=== PATIENT | female | born 1930 | race Caucasian/White ===

== ENCOUNTER 2017-03-14 12:34 | Inpatient (IN) ==
--- NOTE | 2017-03-14 14:05 | XRay Report ---
HISTORY: Reason for Exam:fall FINDINGS: There is an acute intertrochanteric fracture of the left hip. The shaft is displaced laterally and retracted proximally. The joint space in the hip is normal in width and alignment. The bones are osteopenic. There is arthritis and joint space narrowing at the symphysis pubis. A moderate scoliotic curvature is seen in the lumbar spine. IMPRESSION: Intertrochanteric fracture of the proximal left femur Interpreted and Authenticated by: Reese Lara 03/14/17
--- NOTE | 2017-03-14 14:10 | XRay Report ---
HISTORY: Reason for Exam:Hip Fracture FINDINGS: The left hemithorax is nearly completely opacified consistent with prior pneumonectomy and thoracoplasty. There is deformity of the ribs. The right lung is well expanded and clear. The heart cannot be visualized since it is in the left thorax. There is also a moderately severe dextroscoliotic curvature in the lower thoracic spine and compensatory levoscoliosis at the cervical thoracic junction. There has been no significant change since 02/18/14. IMPRESSION: Chronic stable surgical changes in left thorax and no acute abnormality. Interpreted and Authenticated by: Reese Lara 03/14/17
--- NOTE | 2017-03-14 14:13 | XRay Report ---
HISTORY: Reason for Exam:Knee Pain FINDINGS: There is a well-positioned hemiarthroplasty in the medial side of the knee. The alignment is unchanged since 08/23/06. Dystrophic calcifications have formed along the outer margin of the medial prosthetic tibial plateau. Patient is also developing chondrocalcinosis in the lateral meniscus. The lateral joint space is somewhat narrowed compared with the prior exam. There is soft tissue swelling around the joint anteriorly and medially. No acute fracture is present. The bones are osteopenic. IMPRESSION: No acute fracture Interpreted and Authenticated by: Reese Lara 03/14/17
--- NOTE | 2017-03-14 14:29 | Emergency Department Note ---
Lower Extremity Injury HPI - General Chief Complaint: Extremity Injury, Lower Stated Complaint: L posterior hip pain, back pain Time Seen by Provider: 03/14/17 12:40 Source: patient, EMS Mode of arrival: EMS - History of Present Illness HPI Narrative: 78-year-old female presents with left hip pain. States she fell at home when the wheel on her walker got stuck. States yesterday at religious she excellently backed into her walker and bent the frame of the walker and broke the wheel. Today she was trying to use her walker and the wheel stuck and she fell over the walker. Landed on the left hip and leg periods had left hip pain since. States she has chronic left knee pain so she tries to baby that leg and that is why she uses a walker. Her left knee is sore as well but the left hip is where most of her pain is. States no pain unless she ambulates. It is severe if she ambulates or bears weight. No dysuria or frequency. No difficulty urinating. Denies hitting her head. No head, neck or back pain. No loss of consciousness. Is not on any blood thinners. - Related Data Home Medications Medication Instructions Recorded Confirmed Levothyroxine [Synthroid] 50 mcg PO DAILY 03/14/17 03/14/17 Losartan/Hctz 50/12.5 [Hyzaar 1 tab PO DAILY 03/14/17 03/14/17 50/12.5] Allergies Allergy/AdvReac Type Severity Reaction Status Date / Time No Known Drug Allergies Allergy Unverified 03/14/17 12:38 Review of Systems All systems ED: reviewed and negative except as stated. Past Medical History - Past Medical History Medical history: Reports: hypertension, thyroid disease Surgical history ED: Reports: appendectomy, , other (Left knee surgery , states prior pneumothorax related to tuberculosis when she was young) - Social History smoking status: Never smoker Alcohol use: Reports: None Drug use: Reports: none Physical Exam - General Limitations: no limitations General appearance: alert, in no apparent distress - Head Head exam: atraumatic, normocephalic - Eye Eye exam: Present: normal appearance. Absent: conjunctival injection - ENT ENT exam: normal exam, normal oropharynx, mucous membranes moist, TM's normal bilaterally, normal external ear exam - Neck Neck exam: Present: normal inspection, full ROM, trachea midline. Absent: tenderness, lymphadenopathy - Chest Chest inspection: Present: normal inspection, symmetric chest wall rise - Respiratory Respiratory exam: Present: normal lung sounds bilaterally. Absent: respiratory distress, accessory muscle use - Cardiovascular Cardiovascular exam: Present: regular rate, normal heart sounds - Abdominal Exam Abdominal exam: Present: soft, normal bowel sounds. Absent: distention, tenderness, guarding - Extremities Exam Extremities exam: Absent: normal inspection (Left leg is slightly shortened, rotated. Diffuse tenderness to palpation of the left hip. No tenderness to the left knee but does have tenderness in the left knee if extension or flexion. No laxity.), full ROM (Really limited active range of motion the left hip related pain) - Neurological Exam Neurological exam: Present: alert, oriented X3. Absent: motor sensory deficit - Psychiatric Psychiatric exam: Present: normal affect, normal mood - Skin Skin exam: Present: warm, dry, intact, normal color. Absent: rash, cyanosis, diaphoresis, erythema Course Course Narrative: Dr. Noel contacted, who is on-call for orthopedics. He agrees to admit the patient and keep her n.p.o. and try to take her surgery today if possible. The patient last ate and drank at 7:00 this morning. Nothing to eat or drink since. The patient was notified and is agreeable. We will talk to the hospitalist for admit as Dr. Noel has requested hospitalist to admit and Dr. Noel to consult. At 15[address] Dr[address] Samuels who agrees to except and care for patient. Vital Signs Temperature 97.1 F 03/14/17 12:34 Pulse Rate 105 H 03/14/17 12:34 Respiratory Rate 16 03/14/17 12:34 Blood Pressure 158/81 03/14/17 12:34 Pulse Oximetry (%) 96 03/14/17 12:34 Temperature 97.1 F 03/14/17 12:34 Pulse Rate 103 H 03/14/17 14:31 Respiratory Rate 16 03/14/17 12:34 Blood Pressure 171/127 03/14/17 14:31 Pulse Oximetry (%) 95 03/14/17 14:31 Extremity Injury, Lower - Lab Data Result diagrams: 03/14/17 14:04 03/14/17 14:04 Lab Results 10/02/17 10/02/17 Range/Units 14:04 14:04 WBC 17.3 H (4.5-11.0) K/mcL RBC 4.91 (4.00-5.20) M/mcL Hgb 14.7 (12.0-15.0) g/dL Hct 44.1 (36.0-48.0) % MCV 89.9 (80.0-100.0) fL MCH 29.9 (26.0-34.0) pg MCHC 33.3 (31.0-36.0) g/dL RDW 14.7 H (11.5-14.5) % Plt Count 269 (140-440) K/mcL MPV 8.3 (7.4-10.4) fL Gran % 88.9 H (38.0-78.0) % Lymph % (Auto) 6.4 L (15.5-49.0) % [place] % (Auto) 4.0 (1.0-12.0) % Eos % (Auto) 0.3 (0.0-7.0) % Baso % (Auto) 0.4 (0.0-2.0) % Gran # 15.4 H (1.8-8.0) K/mcL Lymph # (Auto) 1.1 L (1.5-4.8) K/mcL [place] # (Auto) 0.7 (0.1-0.9) K/mcL Eos # (Auto) 0.1 (0.0-0.7) K/mcL Baso # (Auto) 0.1 (0.0-0.3) K/mcL Sodium 137 (133-145) mmol/L Potassium 3.8 (3.3-5.1) mmol/L Chloride 95 L (96-108) mmol/L Carbon Dioxide 30 (22-30) mmol/L Anion Gap 12.0 (8-16) BUN 18 (8-23) mg/dl Creatinine 0.7 (0.6-1.1) mg/dl GFR Calculation 77 Glucose 100 (70-105) mg/dL Calcium 9.2 (8.6-10.4) mg/dl Total Bilirubin 0.5 (0.0-1.0) mg/dL AST 15 (0-37) U/l ALT 8 (0-40) U/l Alkaline Phosphatase 71 (39-117) U/L Total Protein 7.5 (5.9-8.4) gm/dL Albumin 3.9 (3.2-5.2) gm/dL Globulin 3.6 (2.2-3.7) gm/dL Albumin/Globulin Ratio 1.1 (1.0-2.3) Disposition Pt seen by SCALE AND SKIP CAR OPERATOR/PA only: Yes Clinical Impression: Fall, Hip fracture, left, Hip pain, left Disposition: Xfer As Inpt ([facility]) Condition: Fair Referrals: Serjio Taveras MD [Primary Care Provider] -
[2017-03-14 14:32] LABS: Basophils # (Auto) 0.1 K/mcL (0.0-0.3); Basophils % (Auto) 0.4 % (0.0-2.0); Eosinophils # (Auto) 0.1 K/mcL (0.0-0.7); Eosinophils % (Auto) 0.3 % (0.0-7.0); Granulocytes % (Auto) 88.9 % (38.0-78.0); Lymphocytes # (Auto) 1.1 K/mcL (1.5-4.8); Lymphocytes % (Auto) 6.4 % (15.5-49.0); Mean Cell Volume 89.9 fL (80.0-100.0); Mean Corpuscular HGB Conc 33.3 g/dL (31.0-36.0); Mean Corpuscular Hemoglobin 29.9 pg (26.0-34.0); Monocytes # (Auto) 0.7 K/mcL (0.1-0.9); Platelet Count 269 K/mcL (140-440); RBC 4.91 M/mcL (4.00-5.20); Red Cell Distribution Width 14.7 % (11.5-14.5)
[2017-03-14 14:50] LABS: ALT/SGPT 8 U/l (0-40); Albumin 3.9 gm/dL (3.2-5.2); Albumin/Globulin Ratio 1.1 (1.0-2.3); Alkaline Phosphatase 71 U/L (39-117); Blood Urea Nitrogen 18 mg/dl (8-23)
[2017-03-14] MEDS ORDERED: ONDANSETRON 4 MG/2 ML VIAL IV ONE (15:08)
[2017-03-14] MEDS ORDERED: HYDROmorphone 2 MG/ML SYRINGE IV PRN (15:08)
[2017-03-14 15:48] LABS: Appearance,Urine CLEAR; Bacteria,Urine 0 /hpf (0); Bilirubin,Urine NEG (NEG); Color,Urine STRAW; Glucose,Urine (UA) NEGATIVE (NEG); Leukocyte Esterase,Urine NEG /uL (NEG); Nitrate,Urine NEG (NEG); Protein,Urine NEG (NEG); Urine Blood 0.03 mg/dL (<0.03); Urine RBC 2 /hpf (0-1); Urine Squamous Epithelial Cell 0 /hpf (0-4); Urine WBC < 1 /hpf (0-4); Urobilinogen,Urine NEG (NEG)
--- NOTE | 2017-03-14 16:15 | Internal Med History&Physical ---
Medical - H&P: HPI Patient information: Note initiated : 03/14/17 at 4:13 pm Service Date, if different from initiated Date: [] Patient: Jaclyn Day 86 y/o F admitted on for Lt Posterior Hip Pain, Back Pain. Chief Complaint: [] History of present illness: Ms. Day is a 86 year old Female with h/o htn, hypothyroidism, presents to the ER after a [facility] fall, she fell after the walker got stuck, pain in the right hip since then. The patient otherwise has no other complaints. pain sharp, worse with movement, non radiating, better with rest and pain meds. The patient denies any prodromal symptoms, no cp, sob, palpitations, dizziness, any bowel or bladder issues before fall, denies any head trauma. She was brought to the ER for further eval In the ER labs show elevated wbc, ua neg, cxr shows collapsed left lung, right lung clear, (h/o tb and pneumectomy when she was 11 yrs old) X ray hip shows IT fracture of the left femur. Admitted to hospital for further management. she denies any bleeding issues, no chest pain, no h/o cad, chf, tia or cva, no h /o renal failure, no h/o dm. All systems: reviewed and no additional remarkable complaints except as stated ( as per hpi) Medical - H&P: PMH Medical history: Medical History Fall (Acute) Hip fracture, left (Acute) Hip pain, left (Acute) htn hypothyroidism Surgical history: appendectomy Family history: reviewed and not pertinent Social history: non smoker no etoh no recreational drugs. Medical - H&P: Meds Home Medications Medication Instructions Recorded Confirmed Type Levothyroxine [Synthroid] 50 mcg PO DAILY 03/14/17 03/14/17 History Losartan/Hctz 50/12.5 [Hyzaar 1 tab PO DAILY 03/14/17 03/14/17 History 50/12.5] Allergies Allergy/AdvReac Type Severity Reaction Status Date / Time No Known Drug Allergies Allergy Unverified 03/14/17 12:38 Medical - H&P: Exam - Constitutional Vitals: Temp Pulse Resp BP Pulse Ox 97.1 F 98 H 16 156/73 98 03/14/17 12:34 03/14/17 16:01 03/14/17 12:34 03/14/17 16:01 03/14/17 16:01 Exam: GENERAL: The patient is a well-developed, well-nourished in no apparent distress. Is alert and oriented x3. VITAL SIGNS: Reviewed and as noted elsewhere. HEENT: Head is normocephalic and atraumatic. Extraocular muscles are intact. Pupils are equal, round, and reactive to light. Nares appeared normal. Mouth appears any without lesions. Mucous membranes are moist. NECK: Normal to inspection, Supple, No lymphadenopathy or thyromegaly. LUNGS: Air entry absent on left side, no wheezing, crackles or rhonchi noted on the right side. No accessory muscles of respiration HEART: Regular rate and rhythm normal, S1 and S2 heard, no Gallop, S3 or Rub Noted, No Gross murmur heard. ABDOMEN: Soft, nontender, and nondistended. Positive bowel sounds. No hepatosplenomegaly was noted. EXTREMITIES: No cyanosis, clubbing, rash, lesions or edema. NEUROLOGIC: Cranial nerves II through XII are grossly intact. Motor and Sensory System Grossly Intact PSYCHIATRIC: Normal affect, Normal Mood. Appropriate Behavior. SKIN: No ulceration or wounds noted, No jaundice, No rash noted. Medical - H&P: Reslt - Labs CBC & Chem 7: 03/14/17 14:04 03/14/17 14:04 Labs: Short CBC 03/14/17 Range/Units 14:04 WBC 17.3 H (4.5-11.0) K/mcL Hgb 14.7 (12.0-15.0) g/dL Hct 44.1 (36.0-48.0) % Plt Count 269 (140-440) K/mcL BMP 03/14/17 14:04 Sodium 137 Potassium 3.8 Chloride 95 L Carbon Dioxide 30 BUN 18 Creatinine 0.7 Glucose 100 Calcium 9.2 Liver Function 03/14/17 Range/Units 14:04 Total Bilirubin 0.5 (0.0-1.0) mg/dL AST 15 (0-37) U/l ALT 8 (0-40) U/l Alkaline Phosphatase 71 (39-117) U/L Albumin 3.9 (3.2-5.2) gm/dL Urine 03/14/17 Range/Units 15:33 Urine Color Straw Urine Appearance Clear Urine pH 5.0 (5.0-9.0) Ur Specific [place] 1.010 (1.000-1.035) Urine Protein Neg (NEG) mg/dL Urine Glucose (UA) Negative (NEG) mg/dL Medical - H&P: A/P (1) Hypertension Current visit: Yes Status: Acute (2) Hypothyroidism (acquired) Current visit: Yes Status: Acute (3) Fall Current visit: Yes Status: Acute (4) Hip fracture, left Current visit: Yes Status: Acute (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 Management as per ortho, pain management, dvt as per ortho HTN: BP ok, resume home meds after surgery HYpothyroidism: Resume synthroid after surgery Leucocytosis: CXR neg, UA neg, check proclacitionin, clinically pt does not seem to have infection, likely secondary to stress/ trauma, monitor DVT lovenox in AM Full code Regular diet after surgery, NPO for now.
[2017-03-14] MEDS ORDERED: ceFAZolin 1 GM VIAL IM ONE (16:22)
[2017-03-14] MEDS ORDERED: ceFAZolin 1 GM VIAL ONE (16:29)
[2017-03-14] MEDS ORDERED: ceFAZolin 1 GM VIAL IV SCH (16:30)
[2017-03-14] MEDS ORDERED: fentaNYL 100 MCG/2 ML VIAL IV ONE (16:55)
[2017-03-14] MEDS ORDERED: METOPROLOL TARTRATE 5 MG/5 ML VIAL IV ONE (16:55)
[2017-03-14] MEDS ORDERED: MIDAZOLAM 2 MG/2 ML VIAL ONE (16:55)
[2017-03-14] MEDS ORDERED: 0.9 % SODIUM CHLORIDE 1,000 ML IV ONE (17:33)
[2017-03-14] MEDS ORDERED: HYDROCODONE/APAP 7.5/325MG TABLET PO PRN (17:51)
[2017-03-14] MEDS ORDERED: ONDANSETRON 4 MG/2 ML VIAL IV PRN ×3 (17:51→19:07)
--- NOTE | 2017-03-14 17:51 | Brief Operative Note ---
Date of procedure: 03/14/17 Pre-op diagnosis: IT l hip fx Post-op diagnosis: same Procedure: Gamma nail Grafts/Implants: Yes (Gamma nail silvia) Anesthesia: spinal Complications: none Surgeon: Juan Antonio Noel Well Driller: Darius Milton Estimated blood loss (cc): 250 Tourniquet Time (Minutes): 0 Specimens Removed/Pathology: none sent Condition: stable Disposition: PACU
--- NOTE | 2017-03-14 18:11 | History and Physical Report ---
DATE OF ADMISSION: 03/14/2017 HISTORY OF PRESENT ILLNESS: Jaclyn is 86 years old. She tripped on her walker today. She was noted to have an intertrochanteric left hip fracture in the [facility] Emergency Room. History was taken from the patient. PAST MEDICAL HISTORY: Tuberculosis at the age of 11 with a collapsed lung. She has had no chronic tuberculosis. She was unclear if she took antibiotics when she had tuberculosis. SURGICAL HISTORY: Appendectomy, and a knee scope. HABITS: Smoking: No. Alcohol: No. SOCIAL HISTORY: She is a community ambulator. Her baseline activity is walking with a walker. MEDICATIONS: She could not remember the name, but there was one antihypertensive and one thyroid supplement. PHYSICAL EXAMINATION: GENERAL: She is awake, alert, oriented. She speaks well and seems to hear well. Mood and affect are normal. HEAD: Shows no signs of trauma. SKIN: Looks moist. LUNGS: Sound clear. CORONARY: Regular rate and rhythm. No murmurs, rubs, or gallops. MUSCULOSKELETAL: Pelvic shows pain with the left hip with rotation. Distally her leg looks a little shortened. She can dorsiflex both ankles actively. X-rays show an intertrochanteric left hip fracture with mild displacement. DIAGNOSIS: Left intertrochanteric hip fracture. I have recommended fixation with a gamma nail. The risks and benefits of surgery were discussed with the patient including the benefit of getting up early, the risk of infection, , medical complications, needing more surgery, etc. The postoperative course was reviewed and no guarantees were given. [email or web address] Job ID: [id number] Doc ID: [id number] Juan Antonio Noel MD
--- NOTE | 2017-03-14 18:35 | XRay Report ---
HISTORY: Reason for Exam:s/p gamma nail for left hip fracture FINDINGS: There is good alignment following open reduction internal fixation of the intertrochanteric fracture in the proximal left femur. A scooter has been inserted through the greater trochanter into the shaft of the femur. There is a crossing scooter which extends through the femoral neck into the head. No other fracture is present. IMPRESSION: Good alignment following internal fixation of the intertrochanteric fracture Interpreted and Authenticated by: Reese Lara 03/14/17
[2017-03-14] MEDS ORDERED: NALOXONE HCL 0.4 MG/ML VIAL IV PRN (19:07)
[2017-03-14] MEDS ORDERED: MAGNESIUM HYDROXIDE 30 ML ORAL.SUSP PO PRN (19:07)
[2017-03-14] MEDS ORDERED: oxyCODONE HCL 5 MG TABLET PO PRN (19:07)
[2017-03-14] MEDS ORDERED: IPRATROPIUM/ALBUTEROL 3 ML AMPUL.NEB NEB PRN (19:07)
[2017-03-14] MEDS ORDERED: 0.9 % SODIUM CHLORIDE 10 ML SYRINGE IV SCH (22:00)
[2017-03-14] MEDS: 0.9 % SODIUM CHLORIDE 10 ML SYRINGE IV SCH ×2 (22:02→22:34)
[2017-03-14] MEDS: SENNOSIDES 1 TABLET PO SCH (22:02)
[2017-03-14] MEDS: HYDROCODONE/APAP 7.5/325MG TABLET PO PRN (22:30)
[2017-03-14] MEDS: HYDROmorphone 2 MG/ML SYRINGE IV PRN (22:31)
[2017-03-15] MEDS ORDERED: ceFAZolin 1 GM VIAL IV SCH ×2 (00:30→22:00)
[2017-03-15] MEDS: 0.9 % SODIUM CHLORIDE 10 ML SYRINGE IV SCH ×6 (05:13→23:26)
[2017-03-15] MEDS ORDERED: ceFAZolin 1 GM VIAL ONE (05:15)
--- NOTE | 2017-03-15 06:35 | Orthopedic Progress Note ---
Orthopedics - Auxillary Note - Subjective Patient Information: Note initiated : 03/15/17 at 6:31 am Service Date, if different from initiated Date: [] Patient: Jaclyn Day 86 y/o F admitted on 03/14/17 for Lt Posterior Hip Pain, Back Pain. Chief Complaint: Mild pain. bandages c/d/i nvi-distal Vital Signs Temp Pulse Pulse Resp BP BP Pulse Ox 03/15/17 03:07 98.1 F 85 14 104/61 97 03/14/17 23:55 97.9 F 81 14 96/56 95 03/14/17 21:22 84 106/61 96 03/14/17 20:25 94 03/14/17 20:22 87 110/66 96 03/14/17 19:52 86 120/72 98 03/14/17 19:22 91 H 130/63 94 03/14/17 19:07 100 H 89 L 03/14/17 19:00 94 03/14/17 18:52 90 118/74 96 03/14/17 18:37 98.6 F 88 16 138/67 90 03/14/17 18:29 98.3 F 87 20 124/90 93 03/14/17 18:25 98.3 F 87 20 124/90 93 03/14/17 18:20 98.3 F 87 20 122/54 93 03/14/17 18:15 98.9 F 87 20 131/71 93 03/14/17 18:10 98.9 F 87 20 122/54 93 03/14/17 18:05 98.9 F 87 20 104/61 93 03/14/17 18:00 99.8 F H 84 20 109/61 93 03/14/17 16:12 98 H 16 156/73 98 03/14/17 16:01 98 H 156/73 98 03/14/17 15:30 102 H 146/74 92 03/14/17 15:08 99 H 138/75 93 03/14/17 14:31 103 H 171/127 95 03/14/17 14:01 100 H 155/75 94 03/14/17 13:40 91 H 134/71 92 03/14/17 12:46 95 H 145/68 94 03/14/17 12:38 94 H 158/81 91 03/14/17 12:34 97.1 F 105 H 16 158/81 96 Intake and Output 03/14/17 03/15/17 03/15/17 21:59 05:59 13:59 Intake Total 2100 / 2100 100 / 100 Output Total 750 / 750 100 / 100 Balance 1350 / 1350 0 / 0 Intake: IV 1000 / 1000 Sodium Chloride 0.9% 1,000 ml @ 1000 / 1000 Wide Open IV BOLUS ONE Rx#: [id number] Oral 100 / 100 Other 1100 / 1100 Output: Urine Catheter Amount 750 / 750 100 / 100 Other: Weight 120 lb Laboratory Results - last 24 hr 03/14/17 03/14/17 03/14/17 14:04 14:04 14:04 WBC 17.3 H RBC 4.91 Hgb 14.7 Hct 44.1 MCV 89.9 MCH 29.9 MCHC 33.3 RDW 14.7 H Plt Count 269 MPV 8.3 Gran % 88.9 H Lymph % (Auto) 6.4 L [place] % (Auto) 4.0 Eos % (Auto) 0.3 Baso % (Auto) 0.4 Gran # 15.4 H Lymph # (Auto) 1.1 L [place] # (Auto) 0.7 Eos # (Auto) 0.1 Baso # (Auto) 0.1 Sodium 137 Potassium 3.8 Chloride 95 L Carbon Dioxide 30 Anion Gap 12.0 BUN 18 Creatinine 0.7 GFR Calculation 77 Glucose 100 Calcium 9.2 Total Bilirubin 0.5 AST 15 ALT 8 Alkaline Phosphatase 71 Total Protein 7.5 Albumin 3.9 Globulin 3.6 Albumin/Globulin Ratio 1.1 Procalcitonin < 0.05 Urine Color Urine Appearance Urine pH Ur Specific [place] Urine Protein Urine Glucose (UA) Urine Ketones Urine Occult Blood Urine Nitrate Urine Bilirubin Urine Urobilinogen Ur Leukocyte Esterase Urine RBC Urine WBC Ur Squamous Epith Cells Urine Bacteria Ur Culture Indicated? 03/14/17 15:33 WBC RBC Hgb Hct MCV MCH MCHC RDW Plt Count MPV Gran % Lymph % (Auto) [place] % (Auto) Eos % (Auto) Baso % (Auto) Gran # Lymph # (Auto) [place] # (Auto) Eos # (Auto) Baso # (Auto) Sodium Potassium Chloride Carbon Dioxide Anion Gap BUN Creatinine GFR Calculation Glucose Calcium Total Bilirubin AST ALT Alkaline Phosphatase Total Protein Albumin Globulin Albumin/Globulin Ratio Procalcitonin Urine Color Straw Urine Appearance Clear Urine pH 5.0 Ur Specific [place] 1.010 Urine Protein Neg Urine Glucose (UA) Negative Urine Ketones 5/tr A Urine Occult Blood 0.03 A Urine Nitrate Neg Urine Bilirubin Neg Urine Urobilinogen Neg Ur Leukocyte Esterase Neg Urine RBC 2 H Urine WBC < 1 Ur Squamous Epith Cells 0 Urine Bacteria 0 Ur Culture Indicated? No s/p L hip IM nailing for intertroch fx-stable mobilize with PT.
[2017-03-15] MEDS: LEVOTHYROXINE 50 MCG TABLET PO SCH (06:58)
[2017-03-15] MEDS: NACL 0.9% W/KCL 20MEQ 1,000 ML IV SCH ×2 (07:06→16:51)
[2017-03-15] MEDS: LOSARTAN 50 MG TABLET PO SCH (08:18)
[2017-03-15] MEDS: ENOXAPARIN 30 MG/0.3 ML SYRINGE SQ SCH (08:18)
[2017-03-15] MEDS: HYDROCHLOROTHIAZIDE 12.5 MG CAPSULE PO SCH (08:18)
--- NOTE | 2017-03-15 08:32 | Operative Note ---
DATE OF OPERATION: 03/14/2017 PREOPERATIVE DIAGNOSIS: Left intertrochanteric hip fracture. POSTOPERATIVE DIAGNOSIS: Left intertrochanteric hip fracture. OPERATION: Gamma nail, left hip. SURGEON: Juan Antonio Noel M.D. MOTION PICTURE SET GRIP: Darius Milton PA-C. ANESTHESIA: Spinal done by John Pendleton CRNA. ESTIMATED BLOOD LOSS: 250 mL. SUMMARY OF PROCEDURE: A spinal was placed. All bony prominences were padded. The fracture was reduced under anesthesia. The lateral aspect of the femur was prepped and draped. A 1-inch incision was made proximal and parallel to the vastus lateralis. The incision was taken through the lateralis down to the greater trochanter which was identified on the mini C-arm. The intramedullary canal was opened with an awl. A ball-tipped guidewire was then passed down the length of bone across the fracture. The position was confirmed to be satisfactory on AP and lateral fluoroscopic views. The proximal 10 cm of the femur was then reamed with the 16.5 mm reamer. The 11 mm thickness Gamma nail at 125 degree angle was then advanced across the fracture. I used the guide system and image to place the pin into the head of the femur in the center-center position. The hole was then reamed. An 85 mm screw was placed into the head. This was 10.5 mm diameter. The locking screw was placed through the hole and the nail proximally as well. I then switched to the distal guide system using the static hole. The skin was opened after finding the location of the screw hole under image. I used a clamp to spread the soft tissue. The screw hole was then drilled and a 37.5 mm length distal static screw was placed. Final position of reduction and hardware was confirmed to be satisfactory under fluoroscopy. The wounds were irrigated. The fascia split proximally was closed with an 0 Vicryl. The subcutaneous tissue was reapproximated with buried 2-0 Monocryl. The skin was closed throughout with carmen. Sterile compressive dressings were applied. The sponge and needle count was correct. The patient tolerated the procedure well and was taken to the recovery room in stable condition. [email or web address]:[email or web address] Job ID: [id number] Doc ID: [id number] Juan Antonio Noel MD
[2017-03-15] MEDS ORDERED: LOSARTAN/HCTZ 50/12.5 TABLET PO SCH (09:00)
[2017-03-15 10:02] LABS: Basophils # (Auto) 0.1 K/mcL (0.0-0.3); Basophils % (Auto) 0.8 % (0.0-2.0); Eosinophils # (Auto) 0.1 K/mcL (0.0-0.7); Eosinophils % (Auto) 0.3 % (0.0-7.0); Granulocytes % (Auto) 79.9 % (38.0-78.0); Lymphocytes # (Auto) 1.6 K/mcL (1.5-4.8); Lymphocytes % (Auto) 9.2 % (15.5-49.0); Mean Cell Volume 89.9 fL (80.0-100.0); Mean Corpuscular HGB Conc 33.3 g/dL (31.0-36.0); Mean Corpuscular Hemoglobin 29.9 pg (26.0-34.0); Monocytes # (Auto) 1.8 K/mcL (0.1-0.9); Monocytes % (Auto) 9.8 % (1.0-12.0); Platelet Count 143 K/mcL (140-440); RBC 4.34 M/mcL (4.00-5.20); Red Cell Distribution Width 14.7 % (11.5-14.5)
--- NOTE | 2017-03-15 10:18 | Internal Med Progress Note ---
Medical - PN: Subj Patient information: Note initiated : 03/15/17 at 10:16 am Service Date, if different from initiated Date: [] Patient: Jaclyn Day 86 y/o F admitted on 03/14/17 for Lt Posterior Hip Pain, Back Pain. Chief Complaint: [] Interval history: Patient seen examined, no acute overnight events s/p surgery tolerated procedure well still has leucocytosis but no e/o infection. Pt tolerating po diet well, willing to work with PT Pertinent ROS: Denies headache, dizziness Denies chest pain, palpitations Denies cough or shortness of breath Denies abdominal pain, nausea or vomiting. - Constitutional Vitals: Vital Signs Temp Pulse Resp BP Pulse Ox 97.3 F 85 16 114/63 98 03/15/17 08:00 03/15/17 08:00 03/15/17 08:00 03/15/17 08:00 03/15/17 08:00 Period Temp Pulse Resp BP Sys/Crum Pulse Ox Last 24 Hr 97.1 F-99.8 F 81-105 14-20 96-171/54-127 89-98 Intake and Output 03/14/17 03/15/17 03/15/17 21:59 05:59 13:59 Intake Total 2100 / 2100 100 / 100 Output Total 750 / 750 100 / 100 Balance 1350 / 1350 0 / 0 Weight 120 lb Intake & Output: Intake & Output 03/14/17 03/15/17 03/15/17 21:59 05:59 13:59 Intake Total 2100 / 2100 100 / 100 Output Total 750 / 750 100 / 100 Balance 1350 / 1350 0 / 0 Weight 120 lb Intake: IV 1000 / 1000 Sodium Chloride 0.9% 1,000 ml @ 1000 / 1000 Wide Open IV [facility] Rx#: [id number] Oral 100 / 100 Other 1100 / 1100 Output: Urine Catheter Amount 750 / 750 100 / 100 Exam: Constitutional; Afebrile, cooperative, alert, not in distress. Eyes- No icterus, , No periorbital swelling Ears- Ext ear normal, hearing normal to conversation. Neck- Midline trachea, supple Respiratory system: Air Entry equal on both sides, No crackles or wheezing, no rhonchi. CVS- Rate rhythm regular, S1,S2 heard, no gallop, no rub. Abdomen- Soft nontender abdomen, no organomegaly, no tenderness, no guarding or rigidity, RESIDENTIAL DESIGNER- AOOx3, moving all extremities, no gross focal deficit noted. Medical - PN: Obj Da - Labs CBC & Chem 7: 03/15/17 07:40 03/14/17 14:04 Labs: Abnormal Lab Results 03/15/17 03/14/17 03/14/17 07:40 15:33 14:04 WBC 17.8 H RDW 14.7 H Gran % 79.9 H Lymph % (Auto) 9.2 L Gran # 14.2 H Lymph # (Auto) [place] # (Auto) 1.8 H Chloride 95 L Urine Ketones 5/tr A Urine Occult Blood 0.03 A Urine RBC 2 H 03/14/17 14:04 WBC 17.3 H RDW 14.7 H Gran % 88.9 H Lymph % (Auto) 6.4 L Gran # 15.4 H Lymph # (Auto) 1.1 L [place] # (Auto) Chloride Urine Ketones Urine Occult Blood Urine RBC Meds: Medications Acetaminophen (Tylenol) 650 mg PO Q6HP PRN PRN Reason: PAIN/FEVER > 101 Hydrocodone Bitart/Acetaminophen ([place] 7.5/325mg) 0 tab PO Q4HP PRN PRN Reason: Pain Last Admin: 03/14/17 22:30 Dose: 1 tab Albuterol/Ipratropium (Duoneb) 3 ml NEB Q4HRT PRN PRN Reason: Shortness Of Breath Or Wheezing Cefazolin Sodium (Ancef) 1 gm IV Q8H REPLACED BY [facility] Stop: 03/16/17 06:01 Last Admin: 03/14/17 22:32 Dose: 1 gm Enoxaparin Sodium (Lovenox) 30 mg SQ DAILY REPLACED BY [facility] Last Admin: 03/15/17 08:18 Dose: 30 mg Hydrochlorothiazide (Oretic) 12.5 mg PO DAILY REPLACED BY [facility] Last Admin: 03/15/17 08:18 Dose: 12.5 mg Hydromorphone HCl (Dilaudid) 0.5 mg IV Q2HP PRN PRN Reason: Pain Last Admin: 03/14/17 22:31 Dose: 0.5 mg Potassium Chloride/Sodium Chloride (Nacl 0.9% W/Kcl 20meq 1000ml) 1,000 mls @ 100 mls/hr IV .Q10H REPLACED BY [facility] Last Admin: 03/15/17 07:06 Dose: 100 mls/hr Levothyroxine Sodium (Synthroid) 50 mcg PO QAMAC REPLACED BY [facility] Last Admin: 03/15/17 06:58 Dose: 50 mcg Losartan Potassium (Cozaar) 50 mg PO DAILY REPLACED BY [facility] Last Admin: 03/15/17 08:18 Dose: 50 mg Magnesium Hydroxide (Milk Of Magnesia) 30 ml PO DAILYP PRN PRN Reason: Constipation Naloxone HCl (Narcan) 0.1 mg IV Q2MIN PRN PRN Reason: Opiate Reversal Ondansetron HCl (Zofran) 4 mg IV Q6HP PRN PRN Reason: Nausea And Vomiting Ondansetron HCl (Zofran) 4 mg IV Q6HP PRN PRN Reason: Nausea And Vomiting Oxycodone HCl (Roxicodone) 5 mg PO Q4HP PRN PRN Reason: Pain Senna (Senokot) 2 tab PO HS REPLACED BY [facility] Last Admin: 03/14/17 22:02 Dose: Not Given Sodium Chloride (Saline Flush) 10 ml IV Q8 REPLACED BY [facility] Last Admin: 03/15/17 05:13 Dose: 10 ml Sodium Chloride (Saline Flush) 10 ml IV Q8 REPLACED BY [facility] Last Admin: 03/15/17 05:14 Dose: Not Given Medical - PN: A/P - Time Spent With Patient Total time spent is greater than 50% in coordination of care (as documented) at patient's floor/unit and/or counseling patient: (1) Hypertension Status: Acute Current Visit: Yes (2) Hypothyroidism (acquired) Status: Acute Current Visit: Yes (3) Fall Status: Acute Current Visit: Yes (4) Hip fracture, left Status: Acute Current Visit: Yes (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 management as per them , HTN: BP ok shazia meds resumed. HYpothyroidism: on synthroid, Leucocytosis: CXR neg, UA neg, procalcitonin is < 0.05, likely reactive, monitor no need for antibiotics. DVT lovenox in AM Full code Medical - PN: Qual - VTE Deep Vein Thrombosis/Pulmonary Embolism Present on Admission: No
[2017-03-15] MEDS: HYDROCODONE/APAP 7.5/325MG TABLET PO PRN (10:57)
[2017-03-15] MEDS: SENNOSIDES 1 TABLET PO SCH (20:35)
[2017-03-16] MEDS: HYDROCODONE/APAP 7.5/325MG TABLET PO PRN ×2 (02:24→16:38)
[2017-03-16] MEDS: 0.9 % SODIUM CHLORIDE 10 ML SYRINGE IV SCH ×4 (02:51→20:43)
[2017-03-16] MEDS: HYDROmorphone 2 MG/ML SYRINGE IV PRN (02:51)
[2017-03-16] MEDS: NACL 0.9% W/KCL 20MEQ 1,000 ML IV SCH ×3 (03:36→23:58)
[2017-03-16] MEDS: LEVOTHYROXINE 50 MCG TABLET PO SCH (07:36)
[2017-03-16] MEDS: HYDROCHLOROTHIAZIDE 12.5 MG CAPSULE PO SCH (10:14)
[2017-03-16] MEDS: ENOXAPARIN 30 MG/0.3 ML SYRINGE SQ SCH (10:14)
[2017-03-16] MEDS: LOSARTAN 50 MG TABLET PO SCH (10:14)
[2017-03-16 10:57] LABS: Basophils # (Auto) 0 K/mcL (0.0-0.3); Basophils % (Auto) 0.2 % (0.0-2.0); Eosinophils # (Auto) 0.4 K/mcL (0.0-0.7); Eosinophils % (Auto) 2.7 % (0.0-7.0); Granulocytes % (Auto) 81.7 % (38.0-78.0); Lymphocytes % (Auto) 6.6 % (15.5-49.0); Mean Cell Volume 91.2 fL (80.0-100.0); Mean Corpuscular HGB Conc 33.4 g/dL (31.0-36.0); Mean Corpuscular Hemoglobin 30.5 pg (26.0-34.0); Monocytes # (Auto) 1.3 K/mcL (0.1-0.9); Monocytes % (Auto) 8.8 % (1.0-12.0); Platelet Count 189 K/mcL (140-440); RBC 3.72 M/mcL (4.00-5.20); Red Cell Distribution Width 14.8 % (11.5-14.5)
--- NOTE | 2017-03-16 13:48 | Internal Med Progress Note ---
Medical - PN: Subj Patient information: Note initiated : 03/16/17 at 1:47 pm Service Date, if different from initiated Date: [] Patient: Jaclyn Day 86 y/o F admitted on 03/14/17 for Lt Posterior Hip Pain, Back Pain/Left Hip Fracture. Chief Complaint: [] Interval history: Patient seen examined, no acute overnight events s/p surgery tolerated procedure well pod2 today tolerating po well, denies any acute issue. Pertinent ROS: Denies headache, dizziness Denies chest pain, palpitations Denies cough or shortness of breath Denies abdominal pain, nausea or vomiting. - Constitutional Vitals: Vital Signs Temp Pulse Resp BP Pulse Ox 97.8 F 79 18 98/58 93 03/16/17 10:54 03/16/17 07:21 03/16/17 10:54 03/16/17 10:54 03/16/17 10:54 Period Temp Pulse Resp BP Sys/Crum Pulse Ox Last 24 Hr 97.4 F-98.6 F 79-93 12-20 94-113/55-65 92-100 Intake and Output 03/15/17 03/16/17 03/16/17 21:59 05:59 13:59 Intake Total 600 / 600 1100 / 1100 480 / 480 Output Total 250 / 250 300 / 300 Balance 350 / 350 800 / 800 480 / 480 Weight 120 lb 8 oz Intake & Output: Intake & Output 03/15/17 03/16/17 03/16/17 21:59 05:59 13:59 Intake Total 600 / 600 1100 / 1100 480 / 480 Output Total 250 / 250 300 / 300 Balance 350 / 350 800 / 800 480 / 480 Weight 120 lb 8 oz Intake: IV 1000 / 1000 NaCl 0.9% W/KCl 20Meq 1000ML 1, 1000 / 1000 000 ml @ 100 mls/hr IV .Q10H [facility] Rx#:[id number] Oral 600 / 600 100 / 100 480 / 480 Output: Urine Catheter Amount 250 / 250 300 / 300 Other: Meal Breakfast Percent of Meal Consumed 100% Feeding Ability Assist with Tray Set Up Exam: Constitutional; Afebrile, cooperative, alert, not in distress. Eyes- No icterus, , No periorbital swelling Ears- Ext ear normal, hearing normal to conversation. Neck- Midline trachea, supple Respiratory system: Air Entry equal on both sides, No crackles or wheezing, no rhonchi. CVS- Rate rhythm regular, S1,S2 heard, no gallop, no rub. Abdomen- Soft nontender abdomen, no organomegaly, no tenderness, no guarding or rigidity, GREY STOCK RECORDER- AOOx3, moving all extremities, no gross focal deficit noted. Medical - PN: Obj Da - Labs CBC & Chem 7: 03/16/17 10:14 03/14/17 14:04 Labs: Abnormal Lab Results 03/16/17 03/15/17 03/14/17 10:14 07:40 15:33 WBC 15.3 H 17.8 H RBC 3.72 L Hgb 11.3 L Hct 33.9 L RDW 14.8 H 14.7 H Gran % 81.7 H 79.9 H Lymph % (Auto) 6.6 L 9.2 L Gran # 12.5 H 14.2 H Lymph # (Auto) 1.0 L [place] # (Auto) 1.3 H 1.8 H Chloride Urine Ketones 5/tr A Urine Occult Blood 0.03 A Urine RBC 2 H 03/14/17 03/14/17 14:04 14:04 WBC 17.3 H RBC Hgb Hct RDW 14.7 H Gran % 88.9 H Lymph % (Auto) 6.4 L Gran # 15.4 H Lymph # (Auto) 1.1 L [place] # (Auto) Chloride 95 L Urine Ketones Urine Occult Blood Urine RBC Meds: Medications Acetaminophen (Tylenol) 650 mg PO Q6HP PRN PRN Reason: PAIN/FEVER > 101 Hydrocodone Bitart/Acetaminophen ([place] 7.5/325mg) 0 tab PO Q4HP PRN PRN Reason: Pain Last Admin: 03/16/17 02:24 Dose: 1 tab Albuterol/Ipratropium (Duoneb) 3 ml NEB Q4HRT PRN PRN Reason: Shortness Of Breath Or Wheezing Enoxaparin Sodium (Lovenox) 30 mg SQ DAILY [facility] Last Admin: 03/16/17 10:14 Dose: 30 mg Hydrochlorothiazide ([place]) 12.5 mg PO DAILY [facility] Last Admin: 03/16/17 10:14 Dose: 12.5 mg Hydromorphone HCl (Dilaudid) 0.5 mg IV Q2HP PRN PRN Reason: Pain Last Admin: 03/16/17 02:51 Dose: 0.5 mg Potassium Chloride/Sodium Chloride (Nacl 0.9% W/Kcl 20meq 1000ml) 1,000 mls @ 100 mls/hr IV .Q10H [facility] Last Admin: 03/16/17 11:36 Dose: Not Given Levothyroxine Sodium (Synthroid) 50 mcg PO QAMAC [facility] Last Admin: 03/16/17 07:36 Dose: 50 mcg Losartan Potassium (Cozaar) 50 mg PO DAILY [facility] Last Admin: 03/16/17 10:14 Dose: 50 mg Magnesium Hydroxide (Milk Of Magnesia) 30 ml PO DAILYP PRN PRN Reason: Constipation Naloxone HCl (Narcan) 0.1 mg IV Q2MIN PRN PRN Reason: Opiate Reversal Ondansetron HCl (Zofran) 4 mg IV Q6HP PRN PRN Reason: Nausea And Vomiting Ondansetron HCl (Zofran) 4 mg IV Q6HP PRN PRN Reason: Nausea And Vomiting Oxycodone HCl (Roxicodone) 5 mg PO Q4HP PRN PRN Reason: Pain Senna (Senokot) 2 tab PO HS [facility] Last Admin: 03/15/17 20:35 Dose: 2 tab Sodium Chloride (Saline Flush) 10 ml IV Q8 [facility] Last Admin: 03/16/17 05:55 Dose: Not Given Medical - PN: A/P - Time Spent With Patient Total time spent is greater than 50% in coordination of care (as documented) at patient's floor/unit and/or counseling patient: (1) Hypertension Status: Acute Current Visit: Yes (2) Hypothyroidism (acquired) Status: Acute Current Visit: Yes (3) Fall Status: Acute Current Visit: Yes (4) Hip fracture, left Status: Acute Current Visit: Yes (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 management as per them , POD2 HTN: BP ok shazia meds resumed. HYpothyroidism: on synthroid, Leucocytosis: CXR neg, UA neg, procalcitonin is < 0.05, likely reactive, monitor no need for antibiotics. wbc trending down. DVT lovenox Full code xfer to [facility] likely in AM if ok by ortho Medical - PN: Qual - VTE Deep Vein Thrombosis/Pulmonary Embolism Present on Admission: No
[2017-03-16] MEDS: SENNOSIDES 1 TABLET PO SCH (20:43)
[2017-03-17] MEDS: ACETAMINOPHEN 325 MG TABLET PO PRN ×2 (02:17→10:16)
[2017-03-17] MEDS: 0.9 % SODIUM CHLORIDE 10 ML SYRINGE IV SCH (05:54)
[2017-03-17] MEDS: LEVOTHYROXINE 50 MCG TABLET PO SCH (07:11)
--- NOTE | 2017-03-17 07:26 | Discharge Summary ---
Providers - Providers Patient information: Note initiated : 03/17/17 at 7:24 am Service Date, if different from initiated Date: [] Patient: Jaclyn Day 86 y/o F admitted on 03/14/17 for Lt Posterior Hip Pain, Back Pain/Left Hip Fracture. Chief Complaint: [] Discharge date: 03/17/17 Hospitalization Hospital course: Patient was admitted on 03-14-17 for an intertrochanteric left hip fracture that was fixed via intramedullary rodding. Patient stayed in the hospital until when she was discharged. Her stay was uncomplicated. Discharge diagnosis: s/p left hip cephalomedullary nailing Procedures: left hip cephalomedullary nailing Exam - Exam Incision healing: Yes Weight bearing status: partial (50% weight bearing with walker) Ortho Discharge Plan - General - Patient Instructions Diet: Regular Diet Activity: activity as tolerated Dressing Care: May shower in 2 days - Follow Up Plan Follow Up Appointments: Serjio Taveras MD [Primary Care Provider] - Disposition: er SNF Prognosis: Fair Rehab Potential: Fair Overall status at discharge: patient is progressing back to baseline Pending Studies Diet Regular Diet Start TueMar 15 Breakfast Acetaminophen (Tylenol) 650 mg PO Q6HP PRN PRN Reason: PAIN/FEVER > 101 Last Admin: 03/17/17 02:17 Dose: 650 mg Hydrocodone Bitart/Acetaminophen ([place] 7.5/325mg) 0 tab PO Q4HP PRN PRN Reason: Pain Last Admin: 03/16/17 16:38 Dose: 1 tab Admin: 03/16/17 02:24 Dose: 1 tab Admin: 03/15/17 10:57 Dose: 2 tab Admin: 03/14/17 22:30 Dose: 1 tab Enoxaparin Sodium (Lovenox) 30 mg SQ DAILY [facility] Last Admin: 03/16/17 10:14 Dose: 30 mg Admin: 03/15/17 08:18 Dose: 30 mg Hydrochlorothiazide (Oretic) 12.5 mg PO DAILY [facility] Last Admin: 03/16/17 10:14 Dose: 12.5 mg Admin: 03/15/17 08:18 Dose: 12.5 mg Hydromorphone HCl (Dilaudid) 0.5 mg IV Q2HP PRN PRN Reason: Pain Last Admin: 03/16/17 02:51 Dose: 0.5 mg Admin: 03/14/17 22:31 Dose: 0.5 mg Potassium Chloride/Sodium Chloride (Nacl 0.9% W/Kcl 20meq 1000ml) 1,000 mls @ 100 mls/hr IV .Q10H [facility] Last Admin: 03/16/17 23:58 Dose: Admin: 03/16/17 11:36 Dose: Admin: 03/16/17 03:36 Dose: Infusion: 03/15/17 23:27 Dose: 0 mls/hr Admin: 03/15/17 16:51 Dose: Admin: 03/15/17 07:06 Dose: 100 mls/hr Levothyroxine Sodium (Synthroid) 50 mcg PO QAMAC [facility] Last Admin: 03/17/17 07:11 Dose: 50 mcg Admin: 03/16/17 07:36 Dose: 50 mcg Admin: 03/15/17 06:58 Dose: 50 mcg Losartan Potassium (Cozaar) 50 mg PO DAILY [facility] Last Admin: 03/16/17 10:14 Dose: 50 mg Admin: 03/15/17 08:18 Dose: 50 mg Senna (Senokot) 2 tab PO HS [facility] Last Admin: 03/16/17 20:43 Dose: 2 tab Admin: 03/15/17 20:35 Dose: 2 tab Admin: 03/14/17 22:02 Dose: Not Given Sodium Chloride (Saline Flush) 10 ml IV Q8 [facility] Last Admin: 03/17/17 05:54 Dose: 10 ml Admin: 03/16/17 20:43 Dose: 10 ml Admin: 03/16/17 15:23 Dose: 10 ml Admin: 03/16/17 05:55 Dose: Not Given Admin: 03/16/17 02:51 Dose: 10 ml Admin: 03/15/17 20:35 Dose: 10 ml Admin: 03/15/17 12:59 Dose: Admin: 03/15/17 05:13 Dose: 10 ml Admin: 03/14/17 22:02 Dose: Not Given Shift Summary 03/17/17 03:13 Shift Summary by Latanya Han Patient is pleasant and cooperative. VSS on 0.5L O2. 22 gauge to LFA; saline locked. Patient only c/o pain with ambulation. Up with FWW, gait belt, and 2 assist to bedside commode. Marte was removed yesterday afternoon. Patient voided 200ml with a PVR of 226ml. Plan for patient to possibly d/c to [facility] today. Initialized on 03/17/17 03:13 - END OF NOTE
[2017-03-17] MEDS: LOSARTAN 50 MG TABLET PO SCH (08:29)
[2017-03-17] MEDS: HYDROCHLOROTHIAZIDE 12.5 MG CAPSULE PO SCH (08:29)
[2017-03-17] MEDS: ENOXAPARIN 30 MG/0.3 ML SYRINGE SQ SCH (08:29)
--- NOTE | 2017-03-17 09:15 | Discharge Summary ---
Medical - DS: Prov Patient information: Note initiated : 03/17/17 at 9:08 am Service Date, if different from initiated Date: [] Patient: Jaclyn Day 86 y/o F admitted on 03/14/17 for Lt Posterior Hip Pain, Back Pain/Left Hip Fracture. Chief Complaint: [] Date of admission: 03/14/17 18:44 Discharge date: 03/17/17 Primary care physician: Serjio Taveras Admitting clinician: Julianna Samuels Consults: 03/14/17 15:17 Consult to Physician [CONS] Stat Comment: Consulting Provider: Julianna Samuels Reason For Exam: Physician to Consult Discharging clinician: Julianna Samuels Medical - DS: Meds - Discharge Medications Prescriptions: Hydrocodone/APAP 7.5/325Mg [[place] 7.5/325Mg] 1 - 2 tab PO Q6HP PRN #60 tab PRN Reason: Pain Active and Home Medications: Home Medications Levothyroxine [Synthroid] 50 mcg PO DAILY 03/14/17 [History Confirmed 03/14/17 Last Taken Unknown] Losartan/Hctz 50/12.5 [Hyzaar 50/12.5] 1 tab PO DAILY 03/14/17 [History Confirmed 03/14/17 Last Taken Unknown] Hydrocodone/APAP 7.5/325Mg [[place] 7.5/325Mg] 1 - 2 tab PO Q6HP PRN #60 tab 03/17 [Rx Last Taken Unknown] Medical - DS: Hosp Hospital course: Ms. Day is a 86 year old Female with h/o htn, hypothyroidism, [facility], she fell after the walker got stuck, pain in the right hip since then. The patient otherwise has no other complaints. pain sharp, worse with movement, non radiating, better with rest and pain meds. The patient denies any prodromal symptoms, no cp, sob, palpitations, dizziness, any bowel or bladder issues before fall, denies any head trauma. 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 Admitted to hospital for further management and treatment of her hip fracture She was seen by Dr Noel the director telecommunications ortho physician, patient underwent surgery on the day of admission. The patient underwent a gammanail procedure which she tolerated well. She was stable post op day 2 and 3 and participated in PT well. Patient stable for discharge as per Ortho, ortho is managing pain and DVT prophylaxis for this patient. She had elevated wbc count on presentation, but no clinical e/o infection, likely reactive, trending down on discharge. Her procalcitonin was neg, ua and cxr neg. Discharge diagnosis: trochanteric fracture - Time Spent with Patient Total time spent providing and/or coordinating discharge services: Less than 30 minutes Medical - DS: Exam - Constitutional Vitals: Vital Signs Temp Pulse Resp BP Pulse Ox 03/17/17 07:59 93 03/17/17 06:54 97.8 F 100 H 16 134/71 94 03/17/17 02:50 98.0 F 92 H 18 113/67 98 03/17/17 00:00 98.0 F 95 H 18 109/61 96 03/16/17 21:34 94 03/16/17 20:00 98.4 F 102 H 20 105/56 94 03/16/17 19:57 93 03/16/17 14:53 97.2 F 18 101/60 93 03/16/17 10:54 97.8 F 18 98/58 93 Intake and Output 03/16/17 03/17/17 03/17/17 21:59 05:59 13:59 Intake Total 840 / 840 250 / 250 120 / 120 Output Total 445 / 445 350 / 350 525 / 525 Balance 395 / 395 -100 / -100 -405 / -405 Intake: Oral 840 / 840 250 / 250 120 / 120 Output: Urine Catheter Amount 445 / 445 Void Amount 350 / 350 525 / 525 Other: Meal Dinner Breakfast Percent of Meal Consumed 100% 100% Feeding Ability Independent Weight 121 lb Additional comments: Constitutional; Afebrile, cooperative, alert, not in distress. Eyes- No icterus, , No periorbital swelling Ears- Ext ear normal, hearing normal to conversation. Neck- Midline trachea, supple Respiratory system: not in distress, no wheezing on exam CVS- Rate rhythm regular, S1,S2 heard, no gallop, no rub. Abdomen- Soft nontender abdomen, no organomegaly, no tenderness, no guarding or rigidity, GENETIC ENGINEER- AOOx3, moving all extremities, no gross focal deficit noted. Medical - DS: Data Labs on day of discharge: Labs from last 24 hours 03/16/17 10:14 WBC 15.3 H RBC 3.72 L Hgb 11.3 L Hct 33.9 L MCV 91.2 MCH 30.5 MCHC 33.4 RDW 14.8 H Plt Count 189 MPV 8.4 Gran % 81.7 H Lymph % (Auto) 6.6 L [place] % (Auto) 8.8 Eos % (Auto) 2.7 Baso % (Auto) 0.2 Gran # 12.5 H Lymph # (Auto) 1.0 L [place] # (Auto) 1.3 H Eos # (Auto) 0.4 Baso # (Auto) 0 Medical - DS: A/P - Patient/Caregiver Discharge Instructions Activity: increase activity as tolerated Diet: Regular Diet Additional Instructions: OT/PT/ST Follow up with Ortho as scheduled Follow up with PCP in 1-2 weeks Go to ER if shortness of breath, fever, chest pain or any other issues Management of surgical wound/ post op precautions as per ortho reccommendations. Prescriptions: Hydrocodone/APAP 7.5/325Mg [[place] 7.5/325Mg] 1 - 2 tab PO Q6HP PRN #60 tab PRN Reason: Pain - Problem Maintenance (1) Hypertension Status: Acute (2) Hypothyroidism (acquired) Status: Acute (3) Fall Status: Acute (4) Hip fracture, left Status: Acute (5) Leucocytoclastic vasculitis Status: Acute (6) Leucocytosis Status: Acute - Follow up Plan Follow up with: Juan Antonio Noel MD [Physician] - (please call/schedule to be seen in 10-14 days.) Serjio Taveras MD [Primary Care Provider] - Disposition: Xfer SNF Prognosis: Fair Rehab Potential: Fair I certify that the patient requires SNF services: Yes Overall status at discharge: patient is progressing back to baseline Medical - DS: Qual - VTE Deep Vein Thrombosis/Pulmonary Embolism Present on Admission: No
== END 2017-03-17 10:40 | DRG 482 ==
LOC: ED 12:34 → SUR 16:16 → MEDSUR 18:44
PROVIDERS: ADMIT Internal Medicine; ATTEND Internal Medicine